=== PATIENT | male | born 1975 ===

== ENCOUNTER 2018-02-12 15:25 | Emergency (ER) | payer OTHER ==
[2018-02-12 15:31] VITALS: BP 130/88; PULSE 94; RESP 18; TEMP 98; O2SAT 97
--- NOTE | 2018-02-12 15:40 | ED PDOC ---
HPI: General Adult Time Seen by Provider: 02/12/18 15:32 Chief Complaint (Nursing): ENT Problem Chief Complaint (Provider): facial swelling, dental pain History Per: Patient History/Exam Limitations: no limitations Onset/Duration Of Symptoms: Days (x2) Current Symptoms Are (Timing): Still Present Additional Complaint(s): 42 year old male presents to the Emergency Department complaining of pain to left lower mandible associated with left-sided facial swelling for 2 days. He denies any fever or chills. Patient called mobile doctor listed on his insurance care and was prescribed Amoxicillin over the phone, which he has taken for 1 day. Pain and swelling are now worse. Patient denies any fever or chills. He states he is able to tolerate liquids and solids. PMD: none Past Medical History Reviewed: Historical Data, Nursing Documentation, Vital Signs Vital Signs: Last Vital Signs Temp 98.0 F 02/12/18 15:27 Pulse 94 H 02/12/18 15:27 Resp 18 02/12/18 15:27 BP 130/88 02/12/18 15:27 Pulse Ox 97 02/12/18 16:09 - Medical History PMH: No Chronic Diseases - Surgical History Surgical History: No Surg Hx - Family History Family History: States: No Known Family Hx - Living Arrangements Living Arrangements: With Family - Social History Current smoker - smoking cessation education provided: No Alcohol: None Drugs: Denies - Home Medications Home Medications: Ambulatory Orders Medication Instructions Recorded Clindamycin [Cleocin] 300 mg PO TID #21 cap 02/12/18 Ibuprofen [Motrin Tab] 800 mg PO Q8 PRN #20 tab 02/12/18 - Allergies Allergies/Adverse Reactions: Allergies Allergy/AdvReac Type Severity Reaction Status Date / Time No Known Allergies Allergy Verified 02/12/18 15:27 Review of Systems ROS Statement: Except As Marked, All Systems Reviewed And Found Negative Constitutional: Negative for: Fever, Chills ENT: Positive for: Other (left dental pain, left facial swelling) Neurological: Negative for: Headache, Dizziness Physical Exam - Reviewed Nursing Documentation Reviewed: Yes Vital Signs Reviewed: Yes - Physical Exam Appears: Positive for: Well, Non-toxic, No Acute Distress Head Exam: Positive for: ATRAUMATIC, NORMAL INSPECTION, NORMOCEPHALIC Skin: Positive for: Normal Color. Negative for: Rash Eye Exam: Positive for: Normal appearance ENT: Positive for: TM Is/Are (normal), Other (Diffuse tenderness to the left lower molar teeth, with swelling to the left side of the face, suspicious for dental abscess, no facial cellulitis, no intraoral drainage) Neck: Positive for: Normal, Painless ROM Neurologic/Psych: Positive for: Alert, coding spec II-XII (grossly intact), Oriented. Negative for: Motor/Sensory Deficits, Aphasia, Facial Droop - ECG O2 Sat by Pulse Oximetry: 97 (RA) Pulse Ox Interpretation: Normal Medical Decision Making Medical Decision Making: Initial Impression: 42 y/o with dental abscess, dental pain Patient is medically stable and requires no emergent intervention at this time. Patient will be discharged home with prescriptions for Motrin and Clindamycin. Advised patient to discontinue the amoxicillin at this time. Counseled patient regarding diagnosis and the need for follow up with dentist in 2-3 days. There is agreement to discharge plan. Scribe Attestation: Documented by Tatiana Spring, acting as a scribe for Izzy Pruitt PA-C Provider Scribe Attestation: All medical record entries made by the Scribe were at my direction and personally dictated by me. I have reviewed the chart and agree that the record accurately reflects my personal performance of the history, physical exam, medical decision making, and the department course for this patient. I have also personally directed, reviewed, and agree with the discharge instructions and disposition. Disposition - Clinical Impression Clinical Impression: Dental abscess, Pain, dental - Patient ED Disposition Is Patient to be Admitted: No Counseled Patient/Family Regarding: Diagnosis, Need For Followup, Rx Given - Disposition Referrals: [facility] [employer] [Outside] Disposition: Routine/Home Disposition Time: 15:38 Condition: STABLE Additional Instructions: STOP TAKING AMOXICILLIN AND CONTINUE WITH NEW MEDS. FOLLOW UP IN 2-3 DAYS WITH DENTIST. Prescriptions: Clindamycin [Cleocin] 300 mg PO TID #21 cap Ibuprofen [Motrin Tab] 800 mg PO Q8 PRN #20 tab PRN Reason: Pain, Moderate (4-7) Instructions: Tooth Abscess (DC), Dental Pain (DC) Forms: [facility] (Latvian) - POA Present On Arrival: None
== END 2018-02-12 15:58 | disposition home or self-care (01) ==
LOC: H.ER 15:25
DX: K04.7 Periapical abscess without sinus (principal)